=== PATIENT | female | born 1980 | race Caucasian/White ===

== ENCOUNTER 2021-02-28 12:28 | Emergency (ER) | payer OTHER ==
[~2021-02-28 12:28] MED LIST: NORCO 5-325 TA1 EACH PO
[2021-02-28 13:27] LABS: HEMOGLOBIN 11.8 gm/dl (12.3-15.3); RED BLOOD COUNT 5.19 M/UL (4.00-5.10); WHITE BLOOD COUNT 6.7 K/UL (4.5-11.0)
[2021-02-28 14:32] LABS: BUN/CREATININE RATIO 10 (0-10)
[2021-02-28] MEDS ORDERED: ZOFRAN4 MG PO (15:04)
[2021-02-28] MEDS ORDERED: TORADOL 10 MG T10 MG PO (15:04)
[2021-02-28] MEDS ORDERED: FLOMAX0.4 MG PO (15:04)
[2021-03-24] MEDS ORDERED: FLOMAX 0.4 MG0.4 MG PO (14:49)
== END 2021-02-28 15:26 | disposition home or self-care (01) ==
LOC: ER1 12:28
PROVIDERS: Emergency Medicine
DX: N13.2 Hydronephrosis with renal and ureteral calculous obstruction (principal); Z90.49 Acquired absence of other specified parts of digestive tract; Z87.442 Personal history of urinary calculi
CPT/HCPCS: 80053; 81001; 82150; 83690; 84703; 85025; 96372; 96374; 99284; J1885

== ENCOUNTER → 2021-03-06 | Outpatient (CLI) | payer OTHER ==
[~2021-03-06] MED LIST changes: +FLOMAX 0.4 MG0.4 MG PO; +FLOMAX0.4 MG PO; +TORADOL 10 MG T10 MG PO; +ZOFRAN4 MG PO
== END ==
LOC: EXRD 08:38
DX: N20.0 Calculus of kidney (principal); R14.3 Flatulence
CPT/HCPCS: 74018

== ENCOUNTER → 2021-03-27 | Day surgery (SDC) | payer OTHER | END | disposition home or self-care (01) | LOC: OR 12:12 | DX: N20.0 Calculus of kidney (principal); K21.9 Gastro-esophageal reflux disease without esophagitis; E66.01 Morbid (severe) obesity due to excess calories; M19.90 Unspecified osteoarthritis, unspecified site; Z87.442 Personal history of urinary calculi; Z86.16 Personal history of COVID-19; Z68.41 Body mass index [BMI] 40.0-44.9, adult; Z79.899 Other long term (current) drug therapy | CPT/HCPCS: 81001; 84703; 93005; C1769; C1894; C2617; J1100; J1170; J1885; J1956; J2250; J2405; J2704; J3010; J7030; J7120 ==